=== PATIENT | female | born 1990 | race Caucasian/White ===

== ENCOUNTER 2019-11-06 13:14 | Emergency (ER) | payer BC, SELFPAY ==
[2019-11-06 13:25] VITALS: BP 122/78; PULSE 79; RESP 16; TEMP 36.7; O2SAT 99
[2019-11-06] MEDS: KETOROLAC (*BKC) 60 MG/2 ML VIAL IM (13:50)
[2019-11-06] MEDS: diphenhydrAMINE HCL ELIXIR 12.5 MG/5 ML UDC PO (13:50)
[2019-11-06] MEDS: ONDANSETRON HCL ODT 4 MG TABLET PO (13:51)
--- NOTE | 2019-11-06 14:50 | ED.HA ---
HPI - Headache General Chief Complaint: Headache Stated Complaint: HEADACHE Source: patient and RN notes reviewed Limitations: no limitations History of Present Illness HPI Narrative: The patient a non-smoker/occ drinker, presents with recurrent headache. Patient has a 2-day recurrence of multiple year history of migraine headache. She has been seen by neurology and had prior imaging. She complains of typical gradual onset of bitemporal headache, with nausea unrelieved with her current meds. No fever, neck pain, vomiting, lateralizing weakness, speech?visual changes, loss of taste/smell, cough, S OB, CP, Related Data Home Medications Medication Instructions Recorded Confirmed fexofenadine mg 11/06/19 lisdexamfetamine [Vyvanse] mg 11/06/19 sumatriptan succinate mg PO 11/06/19 topiramate 11/06/19 venlafaxine mg PO 11/06/19 Allergies Allergy/AdvReac Type Severity Reaction Status Date / Time adhesive tape Allergy Severe RASH Verified 06/17/17 10:46 amoxicillin Allergy Unknown RASH Verified 06/17/17 10:46 ciprofloxacin Allergy Unknown Verified 02/22/17 21:20 Penicillins Allergy Unknown Verified 06/10/17 11:55 Review of Systems Review of Systems: Narrative: General/Constitutional: No weight loss,fever Eyes: N0: Redness,discharge Ears/Nose/Throat: No: Epistaxis,ear discharge Respiratory: Denies: Hemoptysis Gastrointestinal: No Vomiting, Bleeding-rectal Skin: No Lumps, eruption Neurologic: No Focal Weakness,Sz Hematologic: Denies: Petechiae/Purpura Psychiatric: No: Suicida ideationl All Other Systems: Reviewed and Negative [facility] Family History Family History (Updated 06/10/17 @ 11:56 by DOCTOR UNKNOWN) Other Diabetes mellitus Hypertension Social History Social History Smoking status: Never smoker Alcohol intake: current Comments At time of signature, agree with nursing past medical, surgical, social and family history. There is no relevant family history pertinent to the presenting complaint Exam Narrative: Exam Narrative: General Appearance: Well appearing, EYE: PERRLA, Conjunctiva clear, EOMI Neurological: A&O x3, CN II-X intact Ears: External ear normal Nose: Normal nose Mouth/Throat: Normal appearing, Normal lips Supple Respiratory: Airway patent, No respiratory distress Musculoskeletal: Full ROM Skin: Warm, Dry Psychiatric: Normal mood, Normal affect Course Vital Signs Vital signs: Vital Signs Temperature 98.1 F 11/06/19 13:25 Pulse Rate 79 11/06/19 13:25 Respiratory Rate 16 11/06/19 13:25 Blood Pressure 122/78 11/06/19 13:25 Pulse Oximetry 99 11/06/19 13:25 Temperature 98.1 F 11/06/19 13:25 Pulse Rate 79 11/06/19 13:25 Respiratory Rate 16 11/06/19 13:25 Blood Pressure 122/78 11/06/19 13:25 Pulse Oximetry 99 11/06/19 13:25 Discharge Plan Discharge Clinical Impression: Migraine Qualifiers: Migraine type: unspecified Status migrainosus presence: without status migrainosus Intractability: not intractable Qualified Code(s): G43.909 - Migraine, unspecified, not intractable, without status migrainosus Patient Disposition: Home, Self-Care Condition: Improved Prescriptions: New tramadol 50 mg tablet 50 mg PO TID PRN (Reason: pain) Qty: 15 RF: 1 [id number]-[id number] [Fioricet] 50-300-40 mg capsule 1 cap PO HS PRN (Reason: pain) Qty: 10 RF: 0 prochlorperazine maleate [Compazine] 10 mg tablet 10 mg PO Q8H PRN (Reason: nausea and vomiting) Qty: 10 RF: 0 No Action venlafaxine 150 mg capsule,extended release 24hr PO RF: 0 sumatriptan succinate 50 mg tablet PO RF: 0 topiramate 25 mg tablet RF: 0 fexofenadine 180 mg tablet RF: 0 Vyvanse 30 mg capsule RF: 0 Interventions: Discharge Disposition Last Done: 11/06/19 14:18 Follow-up/Referrals: Pelon Crum MD [Primary Care Provider] - Stand Alone Forms: Work/School Release IP
== END 2019-11-06 14:20 | disposition home or self-care (01) ==
PROVIDERS: Emergency Provider Emergency Medicine; PCP Emergency Medicine
DX: G43.909 Migraine, unspecified, not intractable, without status migrainosus (principal)
CPT/HCPCS: 96372; 99213; A9270; G0463; J1885

== ENCOUNTER 2020-08-08 16:39 | Emergency (ER) | payer OTHER, SELFPAY ==
[2020-08-08 16:47] VITALS: BP 119/79; PULSE 95; RESP 16; TEMP 36.6; O2SAT 99
--- NOTE | 2020-08-08 17:29 | ED.SKABFB ---
HPI - Skin/Abscess/Foreign Bdy General Chief complaint: Skin/Abscess/Foreign Body Stated complaint: pos skin infection on nose Time Seen by Provider: 08/08/20 17:19 Source: patient and RN notes reviewed Mode of arrival: ambulatory Limitations: no limitations History of Present Illness HPI narrative: Patient presents today complaining of 2-day history of very painful blisters to the right side of her nose. States the area is worsening. Also reports a dry and painful sensation to her right eye associated with the lesions popping up. Denies vision changes, photophobia, double vision. No other lesions described. She has used peroxide, alcohol, antibiotic ointment without relief. MD complaint: lesion Related Data Home Medications Medication Instructions Recorded Confirmed lisdexamfetamine [Vyvanse] 50 mg PO DAILY 08/08/20 08/08/20 venlafaxine 37.5 mg PO DAILY 08/08/20 08/08/20 Allergies Allergy/AdvReac Type Severity Reaction Status Date / Time adhesive tape Allergy Severe RASH Verified 08/08/20 17:04 amoxicillin Allergy Unknown RASH Verified 08/08/20 17:04 ciprofloxacin Allergy Unknown Rash Verified 08/08/20 17:04 Penicillins Allergy Unknown Rash Verified 08/08/20 17:04 Review of Systems Review of Systems: Narrative: CONSTITUTIONAL: Denies body aches, fever, chills, or sweats. EYES: Denies visual changes, redness, or discharge.+ Right eye discomfort and dryness ENT: Denies rhinorrhea, congestion, sore throat, or otalgia. CARDIOVASCULAR: Denies chest pain, palpitations, or edema. RESPIRATORY: Denies cough or dyspnea. GASTROINTESTINAL: Denies abdominal pain, nausea, vomiting, or diarrhea. GENITOURINARY: Denies dysuria or hematuria. SKIN: Denies itching, or wounds.+ Right nose lesions MUSCULOSKELETAL: Denies back pain, joint pain, or myalgia. NEUROLOGIC: Denies headache, numbness, tingling, or weakness. PSYCH: Denies depression or anxiety. [facility] Past Medical History Medical History (Updated 08/08/20 @ 17:34 by Mary Morgan, RESEARCH PHYSICIST, BC) ADHD Anxiety Family History Family History (Updated 06/10/17 @ 11:56 by DOCTOR UNKNOWN) Other Diabetes mellitus Hypertension Social History Social History Smoking status: Never smoker Alcohol intake: current Comments At time of signature, I have reviewed and agree with nursing past medical, surgical, social and family history unless otherwise noted. Please see nursing chart for further information. There is no relevant family history pertinent to the presenting complaint Exam Narrative: Exam Narrative: GENERAL: Well-appearing, well-nourished, and in no acute distress. HEAD: Normocephalic, atraumatic. EYES: EOMI. PERRL. No redness or drainage. Conjunctivae normal. ENT: Mucous membranes pink and moist. Nares clear. No rhinorrhea. NECK: Normal AROM. CHEST: No respiratory distress. EXTREMITIES: Normal range of motion. No edema. SKIN: Warm, dry. Capillary refill normal. Normal skin turgor. +Cluster of crusting vesicles to the right external nostril without edema. Mild surrounding erythema. NEURO: No focal deficits. Alert and oriented x3. Gait steady. PSYCH: Normal affect. No signs of depression or anxiety. Course Vital Signs Vital signs: Vital Signs Temperature 97.8 F 08/08/20 16:47 Pulse Rate 95 08/08/20 16:47 Respiratory Rate 16 08/08/20 16:47 Blood Pressure 119/79 08/08/20 16:47 Pulse Oximetry 99 08/08/20 16:47 Temperature 97.8 F 08/08/20 16:47 Pulse Rate 95 08/08/20 16:47 Respiratory Rate 16 08/08/20 16:47 Blood Pressure 119/79 08/08/20 16:47 Pulse Oximetry 99 08/08/20 16:47 Reviewed MDM - Skin/Abscess/Foreign Bdy Differential Diagnosis Differential diagnosis: Likely abscess of skin or subcutaneous tissue, urticaria, herpes zoster, cellulitis, eczema, insect bites, impetigo and contact dermatitis Critical Care Time Critical Care Time Critical Care Time: No Discharge Plan Discharge Clinical
== END 2020-08-08 17:42 | disposition home or self-care (01) ==
PROVIDERS: Emergency Provider Nurse Practitioner; PCP Emergency Medicine
DX: B02.9 Zoster without complications (principal); F90.9 Attention-deficit hyperactivity disorder, unspecified type; F41.9 Anxiety disorder, unspecified
CPT/HCPCS: 99213; G0463

== ENCOUNTER 2021-02-21 14:25 | Emergency (ER) | payer OTHER, SELFPAY ==
--- NOTE | ~2021-02-21 | XR_ITS ---
EXAMINATION: XR chest 1V portable EXAM DATE: 02/21/2021 16:48 INDICATION: cough x 1mo . TECHNIQUE: Portable AP frontal chest x-ray was obtained. Comparison is made to prior examination from 07/12/2018. FINDINGS: The lungs are clear. There are no pleural effusions. Cardiac silhouette is prominent but magnified on this AP technique. There is no pneumothorax suspected. The bones and soft tissues are unremarkable. IMPRESSION: No acute cardiopulmonary findings. Reviewed, dictated and finalized at location A. REPAIR SUPERVISOR
[2021-02-21 14:33] VITALS: BP 121/61; PULSE 94; RESP 18; TEMP 36.1; O2SAT 100
--- NOTE | 2021-02-21 16:55 | ED.GENADULT ---
HPI - General Adult General Chief complaint: Shortness of Breath/Dyspnea Stated complaint: shortness of breath fever cough Time Seen by Provider: 02/21/21 16:28 Source: patient Mode of arrival: ambulatory Limitations: no limitations History of Present Illness HPI narrative: Patient is 30 years old white female presents with cough, started 1 month ago, didn't get better on 2 courses of antibiotic. Over the last 7 days been running fever, lost her taste of smell and and taste of food, feeling weak and tired. Patient's boyfriend had similar symptoms, boyfriend daughter being diagnosed of Covid. Patient did not get Covid test yet. First Covid vaccine November 2020 Related Data Home Medications Medication Instructions Recorded Confirmed lisdexamfetamine [Vyvanse] 50 mg PO DAILY 08/08/20 08/08/20 venlafaxine 37.5 mg PO DAILY 08/08/20 08/08/20 Allergies Allergy/AdvReac Type Severity Reaction Status Date / Time adhesive tape Allergy Severe RASH Verified 02/21/21 14:38 amoxicillin Allergy Unknown RASH Verified 02/21/21 14:38 ciprofloxacin Allergy Unknown Rash Verified 02/21/21 14:38 Penicillins Allergy Unknown Rash Verified 02/21/21 14:38 Review of Systems Review of Systems: CONSTITUTIONAL: Denies fever, chills, or sweats. EYES: Denies visual changes, redness, or discharge. ENT: Denies rhinorrhea, congestion, sore throat, or otalgia. CARDIOVASCULAR: Denies chest pain, palpitations, or edema. RESPIRATORY: Denies cough or dyspnea. GASTROINTESTINAL: Denies abdominal pain, nausea, vomiting, or diarrhea. GENITOURINARY: Denies dysuria or hematuria. SKIN: Denies rash or itching. MUSCULOSKELETAL: Denies back pain, joint pain, or myalgia. NEUROLOGIC: Denies headache, numbness, or weakness. PSYCHIATRIC: Denies anxiety or depression. [facility] Past Medical History Medical History ADHD Anxiety Family History Family History Other Diabetes mellitus Hypertension Social History Social History Smoking status: Never smoker Alcohol intake: current Exam Narrative: General appearance: Well-developed, well-nourished Skin: Normal color Head: Normocephalic, nontraumatic Eyes: Clear conjunctiva ENT: Oropharynx normal, ears normal, nose normal Neck: Supple, nontender Chest and respiratory: Airway patent, no respiratory distress, no accessory muscle use Heart: Regular rate/rhythm Abdomen: Soft, nontender, no organomegaly, quiet bowel sounds Vascular: Normal peripheral pulses, normal capillary refill. Musculoskeletal: Normal range of motion, nontender back Neurologic: Alert and oriented ?3, SOFTWARE SUPPORT SPECIALIST is normal as tested, no gross motor deficit Course Course Emergency Course: Stable Vital Signs Vital signs: Vital Signs Temperature 36.1 C L 02/21/21 14:33 Pulse Rate 94 02/21/21 14:33 Respiratory Rate 18 02/21/21 14:33 Blood Pressure 121/61 02/21/21 14:33 Pulse Oximetry 100 02/21/21 14:33 Temperature 36.1 C L 02/21/21 14:33 Pulse Rate 94 02/21/21 14:33 Respiratory Rate 18 02/21/21 14:33 Blood Pressure 121/61 02/21/21 14:33 Pulse Oximetry 100 02/21/21 14:33 Medical Decision Making [facility] Narrative Medical decision making narrative: Covid on top of the previous history of coughing is my concern. Chest x-ray showed no acute abnormality, patient oxygenation on room air is 100%. Patient is okay to go home. Differential Diagnosis Differential Diagnosis: Covid test ordered. Vital Signs Vital Signs: Vital Signs Temperature 36.1 C L 02/21/21 14:33 Pulse Rate 94 02/21/21 1
[2021-02-21 17:05] LABS: Basophils Percent Auto 0.3 % (0.2-1.2); Eosinophils Absolute Auto 0.1 K/mm3 (0-0.3); Eosinophils Percent Auto 1.6 % (0-4.4); Hematocrit 41.2 % (37.0-47.0); Hemoglobin 13.3 g/dL (12.0-15.0); Immature Granulocyte Absolute 0.04 K/mm3 (0.00-0.031); Immature Granulocyte Percent A 0.5 % (0-0.5); Lymphocytes Absolute Auto 2.16 K/mm3 (0.9-3.2); Lymphocytes Percent Auto 24.7 % (18.3-44.2); Mean Corpuscular HGB Conc 32.3 g/dl (32-36); Mean Corpuscular Hemoglobin 30.2 pg (26-34); Mean Corpuscular Volume 93.6 fl (80-100); Mean Platelet Volume 9.5 fl (7.4-10.4); Monocytes Absolute Auto 0.5 K/mm3 (0.1-0.6); Monocytes Percent Auto 5.2 % (2.6-8.5); Neutrophils Absolute Auto 5.9 K/mm3 (1.3-6.7); Neutrophils Percent Auto 67.7 % (45.5-73.1); Platelet Count Result 243 k/mm3 (150-375); Red Cell Distribution Width 12.3 % (11.5-14.5); White Blood Count 8.7 K/mm3 (4.5-10.0)
[2021-02-21 17:23] LABS: Alanine Aminotransferase 49 U/L (4-35); Albumin Level 4.6 g/dL (3.5-5.1); Alkaline Phosphatase 89 U/L (38-126); Anion Gap 11 mmol/L (8-16); Aspartate Amino Transferase 36 U/L (14-36); Bilirubin,Total 0.4 mg/dL (0.2-1.3); Blood Urea Nitrogen 7 mg/dL (7-17); Calcium 9.3 mg/dL (8.4-10.2); Carbon Dioxide 27 mmol/L (22-30); Chloride 104 mmol/L (98-107); Estimated CRCL calculation 110 ml/min; Estimated Glomerular Filt Rate > 60; Glucose 86 mg/dL (65-110); Potassium 3.9 mmol/L (3.4-5.0); Sodium 142 mmol/L (137-145)
[2021-02-21 17:27] VITALS: PULSE 86; RESP 17; O2SAT 99
[2021-02-22 14:39] LABS: SARS-CoV-2 RNA PCR Positive
== END 2021-02-21 17:28 | disposition home or self-care (01) ==
PROVIDERS: Emergency Provider Emergency Medicine; PCP Nurse Practitioner
DX: U07.1 COVID-19 (principal)
CPT/HCPCS: 36415; 71045; 80053; 85025; 87804; 99283; C9803; U0003; U0005

== ENCOUNTER 2021-04-07 08:46 | Emergency (ER) | payer OTHER, SELFPAY ==
--- NOTE | ~2021-04-07 | XR_ITS ---
EXAMINATION: XR ankle RT min 3V DATE: 04/07/2021 09:08 INDICATION: Soft tissue swelling at the lateral right ankle post fall TECHNIQUE: Anteroposterior, oblique, mortise, and lateral views of the right ankle were obtained. COMPARISON: None. FINDINGS: There is an oblique fracture through the distal fibula with a fracture plane exiting medially at the level of the tibiotalar joint. There is minimal displacement. No other fracture identified. Specifi kandace the medial and posterior malleoli as well as the talar dome are intact. Ankle mortise remains congruent. Joint spaces are normal. Soft tissue swelling overlying the lateral malleolus. No ankle michelle int effusion. IMPRESSION: 1. Minimally displaced oblique fracture of the distal left fibula consistent with a Pulido type B inju ry pattern. Reviewed, dictated and finalized at location A. ER BLANKET IMPRESSION: 1. Minimally displaced oblique fracture of the distal left fibula consistent wi th a Pulido type B injury pattern.
[2021-04-07 08:50] VITALS: BP 150/100; PULSE 100; RESP 18; O2SAT 100
--- NOTE | 2021-04-07 08:57 | ED.LOWEXIN ---
HPI - Extremity Injury (Lower) General Chief Complaint: Extremity Injury, Lower Stated Complaint: right ankle Time Seen by Provider: 04/07/21 08:52 Source: patient History of Present Illness HPI Narrative: Patient presents with right ankle pain. Patient reports she was trying to uncover her car when she slipped on the ice rolled her ankle. She had immediate pain and has been unable to ambulate. Pain is achy, constant, worse with trying to move her ankle and radiates up her leg. She denies striking her head she denies any loss of consciousness denies any focal numbness or weakness. Denies any prodrome prior to the fall such as chest pain or shortness of breath Related Data Home Medications Medication Instructions Recorded Confirmed lisdexamfetamine [Vyvanse] 50 mg PO DAILY 08/08/20 08/08/20 venlafaxine 37.5 mg PO DAILY 08/08/20 08/08/20 Allergies Allergy/AdvReac Type Severity Reaction Status Date / Time adhesive tape Allergy Severe RASH Verified 04/07/21 08:57 amoxicillin Allergy Unknown RASH Verified 04/07/21 08:57 ciprofloxacin Allergy Unknown Rash Verified 04/07/21 08:57 Penicillins Allergy Unknown Rash Verified 04/07/21 08:57 Review of Systems Review of Systems: CONSTITUTIONAL: Denies fever, chills, or sweats. EYES: Denies visual changes, redness, or discharge. ENT: Denies rhinorrhea, congestion, sore throat, or otalgia. CARDIOVASCULAR: Denies chest pain, palpitations, or edema. RESPIRATORY: Denies cough or dyspnea. GASTROINTESTINAL: Denies abdominal pain, nausea, vomiting, or diarrhea. GENITOURINARY: Denies dysuria or hematuria. SKIN: Denies rash or itching. MUSCULOSKELETAL: Denies back pain, or myalgia. NEUROLOGIC: Denies headache, numbness, dizziness, or weakness. PSYCHIATRIC: Denies anxiety or depression. All systems reviewed & are unremarkable except as noted in HPI and below PMFSH Past Medical History Medical History ADHD Anxiety Family History Family History Other Diabetes mellitus Hypertension Social History Social History Smoking status: Never smoker Alcohol intake: current Exam Narrative: GENERAL: Well-appearing, well-nourished, and in no acute distress. HEAD: Normocephalic, atraumatic. EYES: PERRLA and EOMI. ENT: Nares clear, no rhinorrhea or epistaxis. Mucous membranes moist. EXTREMITIES: Edema and deformity noted on the lateral aspect of the right ankle there is diffuse tenderness on the lateral malleolus no open or draining wounds distal extremity with sensation intact to light touch and cap refill less than 2 seconds SKIN: Warm, dry, no rash. NEURO: No focal deficits. Alert and oriented x3. PSYCH: Normal mood and affect. Course Reevaluation(s) Reevaluation #1: Patient resting comfortably Date: 04/07/21 Time: 10:40 Vital Signs Vital signs: Vital Signs Pulse Rate 100 04/07/21 08:50 Respiratory Rate 18 04/07/21 08:50 Blood Pressure 150/100 H 04/07/21 08:50 Pulse Oximetry 100 04/07/21 08:50 Pulse Rate 87 04/07/21 11:45 Respiratory Rate 18 04/07/21 11:45 Blood Pressure 143/85 H 04/07/21 11:45 Pulse Oximetry 100 04/07/21 11:45 MDM - Extremity Injury (Lower) MDM Narrative Medical decision making narrative: H&P as above, vss, pt looks clinically well, exam with deformity to the right lateral malleolus distal extremity neurovascularly intact, imaging with acute fracture, additional labs/img considered, symptomatic relief available as needed, on reevaluation pt continues to looks clinically well. Suspect isolated fracture due to mechanical fall, dns major neurovascular compromise, open fracture, intracranial hemorrhage. plan to tx/monitor as op w/ Ortho f/u findings/plan discussed with pt, pt agree/comfortable with plan, return precautions given Imaging Data Radiologist's impression: Impr
[2021-04-07 11:45] VITALS: BP 143/85; PULSE 87; RESP 18; O2SAT 100
== END 2021-04-07 10:56 | disposition home or self-care (01) ==
PROVIDERS: Emergency Provider Emergency Medicine; PCP Nurse Practitioner
DX: S82.831A Other fracture of upper and lower end of right fibula, initial encounter for closed fracture (principal); F90.9 Attention-deficit hyperactivity disorder, unspecified type; F41.9 Anxiety disorder, unspecified; W00.0XXA Fall on same level due to ice and snow, initial encounter
CPT/HCPCS: 29515; 73610; 99284